=== PATIENT | female | born 1940 | race Caucasian/White ===

== ENCOUNTER 2023-08-03 09:26 | Emergency (ER) | payer BC, SELFPAY ==
[2023-08-03 09:37] VITALS: BP 141/65; BP 141/68; BMI 33.5
[2023-08-03 09:54] LABS: % Basophils 0.5 % (0-2); % Eosinophils 1.4 % (0-6); % Immature Granulocytes 0.3 % (0-0.5); % Lymphocytes 26.8 % (20.5-51.1); % Monocytes 8.6 % (1.7-9.3); % Neutrophils 62.4 % (42.2-75.2); Absolute Eosinophils 0.1 10^3/uL (0-0.7); Absolute Lymphocytes 2.1 10^3/uL (1.2-3.4); Absolute Monocytes 0.7 10^3/uL (0.1-0.6); Absolute Neutrophils 4.8 10^3/uL (1.4-6.5); Hematocrit 37.3 % (37.0-47.0); Hemoglobin 12.6 g/dL (12.0-16.0); Mean Corp Hgb Conc. 33.8 g/dL (33.0-37.0); Mean Corpuscular Hgb 30.7 pg (27.0-31.0); Mean Platelet Volume 10.5 fL (7.4-10.4); Nucleated Red Blood Cells % 0 %; Platelet Count 219 10^3/uL (130-400); Red Cell Dist. Width 12.9 % (11.5-14.5); White Blood Cell Count 7.7 10^3/uL (4.8-10.8)
--- NOTE | 2023-08-03 10:01 | ED.GENMED ---
History of Present Illness
General
Chief Complaint: Dizziness
Source: patient and ambulance crew
Exam Limitations: none
Time Seen by Provider: 08/03/23 09:54
Nursing documentation reviewed up to this point in time: agreed with
Travel History
Have you had any contact with someone who has COVID-19?: No
Do you have any symptoms of coronavirus? Fever > 100 degrees, chills, cough, shortness of breath, sore throat, loss of taste or smell, muscle aches, or headache?: No
History of Present Illness
History of Present Illness:
82-year-old female presents emergency room complaining of dizziness since 3 AM. Her gave her a glucose tab, and EMS gave her Zofran and IV Versed. She states she feels better.
Past History
Past History
ED Past Medical History: HTN, Hypercholesterolemia and NIDDM
ED Past Surgical History: Cholecystectomy
Social History
Tobacco: Non-smoker
Alcohol: None
Drug: None
Personal:
Living: with family
Review of Systems
Review of Systems
Allergies reviewed?: Yes
All Other Systems: Not applicable
Constitutional: Reports no symptoms
EENT: Reports no symptoms
Respiratory: Reports no symptoms
Cardiac: Reports no symptoms
ABD/GI: Reports nausea
: Reports no symptoms
Musculoskeletal: Reports no symptoms
Skin: Reports no symptoms
Neurological: Reports dizzy
Endocrine: Reports no symptoms
Hematologic/Lymphatic: Reports no symptoms
Psychiatric: Reports no symptoms
Phy Exam
Physical Exam
Physical Exam:
Physical Exam
General: no apparent distress, not acutely ill
Neck: supple. no meningeal signs. normal posterior pharynx
Heart: s1/s2 regular rate and rhythm, no murmur. equal radial
pulses.
HEENT: Pupils equal round reactive to light, EOMI, rightward nystagmus
Lungs: no acute respiratory distress. clear bilaterally
Abdomen: normal bowel sounds. not tender. no CVAT
Neuro: alert and oriented. no focal neurological deficits cranial nerves II through XII intact
Skin: no rash
Psychiatric: well kept. interactive and cooperative
Extremities: no edema. no calf tenderness. negative homans. good distal pulses
Course
Orders/Labs/Results
Orders:
Orders
08/03/23 09:45
EKG [Electrocardiogram (*1)] Urgent
Reason for Study: Vertigo / Dizzy
EKG- Treatment ONCE
08/03/23 09:46
Complete Blood Count/With Diff Urgent
Comprehensive Metabolic Panel Urgent
08/03/23 10:02
CT Head W/o Iv Contrast Urgent
Comment:
Reason For Exam: dizziness, 3 am
Physical Therapy Consult [Pt Eval And Treat] Urgent
Treatment: vestibular evaluation
Activity Level: Ambulate
Abnormal Lab Results
08/03/23
09:46
RBC 4.10 L 10^6/uL
(4.20-5.40)
MPV 10.5 H fL
(7.4-10.4)
Absolute Monos (auto) 0.7 H 10^3/uL
(0.1-0.6)
BUN 23 H mg/dl
(7-17)
Glucose 200 H mg/dl
(70-99)
Calcium 10.6 H mg/dl
(8.4-10.2)
08/03/23 09:46
08/03/23 09:46
Vital Signs
Initial and Last Documented VS:
Initial Vital Signs
Pulse Resp Pulse Ox
100 18 96
08/03/23 09:35 08/03/23 09:35 08/03/23 09:35
Last Documented Vital Signs
Temp Pulse Resp BP Pulse Ox
97.7 F 105 14 136/82 95
08/03/23 09:37 08/03/23 11:30 08/03/23 11:30 08/03/23 11:00 08/03/23 11:15
MDM/Problems Addressed
Differential Diagnosis Includes:
CVA, vertigo
MDM/Problems Addressed:
82-year-old female with vertigo, suspect BPPV. Marcus-Hallpike and further maneuvers proving positive. No acute findings on CT head. Stable for discharge.
Chronic conditions affecting care: DM and HTN
Acute Exacerbation and/or Progression of Chronic Illness: DM and HTN
*Radiology
Radiology exam reviewed: radiology read reviewed (ct head nad)
*Pulse Oximetry
Patient hypoxic: no
*EKG
Interpreted by ED Provider?: Yes
EKG Intrepretation Date: 08/03/23
EKG Intrepretation Time: 09:54
Interpretation: abnormal
Comparison EKG: no comparison EKG present
Heart Rate: 93
Rate: normal
Rhythm: sinus
Tyler: normal axis
Interval: normal interval
QRS Pattern: normal QRS
Ischemia: no ischemia
*Esthetician Facialist Interpretation
Rate: normal
Interpretation: normal
Heart Rate: 92
Rhythm: sinus
*Critical Care Note
Total Time (30-74mins, 75-104mins- exclusive of procedures): Not Applicable
Patient Management
Social determinants of health affecting care: Living situation and Strong social support
Discussion with other providers: Other (physical therapy)
Escalation/DeEscalation of care consider admission/obs:
admit not indicated
ED Attending Note
-
Portions of this chart may have been created with voice recognition software.� Occasional wrong word or��sound alike� substitutions may have occurred due to the inherent limitations of voice recognition software.
Discharge Plan
Departure
Patient Disposition: Home (Routine Discharge)
Date of Disposition: 08/03/23
Time of Disposition: 12:05
Patient with high blood pressure during this ER visit?: Yes
Condition: Good
Discharge Problem:
Vertigo
Instructions: Vertigo (a Type of Dizziness) (DC), BLOOD PRESSURE
Prescriptions:
New
meclizine 25 mg tablet
25 mg PO TID PRN (Reason: dizziness) Qty: 10 0RF
No Action
metformin 500 MG tablet
500 mg PO DAILY
pravastatin 10 MG tablet
10 mg PO DAILY
gabapentin 300 MG capsule
300 mg PO DAILY
potassium bicarb-citric acid 25 MEQ tablet, effervescent
50 meq PO DAILY
Referrals:
Vivian Quinteros PA-C [Family Provider] - Call in 1-3 days for appt
Interventions
Interventions:
*Risk Screen - Suicide Last Done: 08/03/23 09:37
*General Assessment Last Done: 08/03/23 09:37
*Neglect/Abuse Screening Last Done: 08/03/23 09:37
ED- Fall Risk Assessment Last Done: 08/03/23 09:37
*ED COVID-19 Vaccine History Last Done: 08/03/23 09:37
ED- Neurological Assessment Last Done: 08/03/23 09:37
ED- Cardiac Assessment Last Done: 08/03/23 09:37
ED Swallowing Screen Last Done: 08/03/23 09:37
Discharge Date and Time
Print Language: KINYARWANDA
[2023-08-03 10:04] LABS: ALT (SGPT) 29 U/L (0-35); AST (SGOT) 28 U/L (14-36); Albumin 3.7 g/dl (3.5-5.0); Alkaline Phosphatase 102 U/L (38-126); Blood Urea Nitrogen 23 mg/dl (7-17); Calcium 10.6 mg/dl (8.4-10.2); Carbon Dioxide 23 mmol/L (22-30); Chloride 107 mmol/L (98-107); Estimated Creatinine Clearance 44 ml/min; Glucose 200 mg/dl (70-99); Potassium 4.1 mmol/L (3.5-5.1); Sodium 136 mmol/L (135-145); Total Bilirubin 0.9 mg/dl (0.2-1.3); Total Protein 6.9 g/dl (6.3-8.2)
[2023-08-03 10:30] VITALS: BP 114/73
[2023-08-03 11:00] VITALS: BP 136/82
== END 2023-08-03 12:24 | disposition home or self-care (01) ==
LOC: EMR 09:26
PROVIDERS: EMERGENCY PHYSICIAN Emergency Medicine; FAMILY PHYSICIAN Physician Assistant Medical
DX: R42 Dizziness and giddiness (principal); I10 Essential (primary) hypertension; E78.00 Pure hypercholesterolemia, unspecified; E11.9 Type 2 diabetes mellitus without complications; Z90.49 Acquired absence of other specified parts of digestive tract
CPT/HCPCS: 99284; 70450; 80053; 85025; 93005

== ENCOUNTER 2024-10-28 14:28 | Emergency (ER) | payer BC, SELFPAY ==
[2024-10-28 14:53] VITALS: BP 172/86
[2024-10-28 15:05] LABS: % Basophils 0.3 % (0-2); % Eosinophils 0.2 % (0-6); % Immature Granulocytes 0.3 % (0-0.5); % Lymphocytes 16.7 % (20.5-51.1); % Monocytes 6.8 % (1.7-9.3); % Neutrophils 75.7 % (42.2-75.2); Absolute Lymphocytes 1.7 10^3/uL (1.2-3.4); Absolute Monocytes 0.7 10^3/uL (0.1-0.6); Absolute Neutrophils 7.8 10^3/uL (1.4-6.5); Hematocrit 39.8 % (37.0-47.0); Hemoglobin 13.3 g/dL (12.0-16.0); Mean Corp Hgb Conc. 33.4 g/dL (33.0-37.0); Mean Corpuscular Volume 89.8 fL (81.0-99.0); Mean Platelet Volume 10.8 fL (7.4-10.4); Nucleated Red Blood Cells % 0 %; Platelet Count 230 10^3/uL (130-400); Red Blood Cell Count 4.43 10^6/uL (4.20-5.40); Red Cell Dist. Width 13.2 % (11.5-14.5); White Blood Cell Count 10.3 10^3/uL (4.8-10.8)
[2024-10-28 15:34] LABS: Blood Urea Nitrogen 21 mg/dl (7-17); Calcium 10.4 mg/dl (8.4-10.2); Carbon Dioxide 23 mmol/L (22-30); Chloride 108 mmol/L (98-107); Glucose 206 mg/dl (70-99); Sodium 140 mmol/L (135-145); eGFR > 60.00
[2024-10-28 15:38] LABS: Troponin I < 0.012 ng/ml
[2024-10-28 17:55] VITALS: BMI 35.0
[2024-10-28 18:00] VITALS: BP 167/72
[2024-10-28 18:02] VITALS: BP 167/72
--- NOTE | 2024-10-28 18:02 | ED.GENMED ---
History of Present Illness
General
Chief Complaint: Swallowing Problem
Source: patient and family
Time Seen by Provider: 10/28/24 17:48
History of Present Illness
History of Present Illness:
Patient presents after having an episode where she felt inability to swallow and burning in his esophagus. The patient was taking her medication when this happened. For a time she was regurgitating yellowish saliva. After couple hours her
symptoms have suddenly resolved. She does have some pain with swallowing but she is now able to swallow her secretions. Patient had episodes where food seems like it is getting stuck temporarily but will pass on its own. She has not had any
endoscopies before.
Past History
Past History
ED Past Medical History: HTN, Hypercholesterolemia and NIDDM
ED Past Surgical History: Cholecystectomy
Social History
Tobacco: Non-smoker
Alcohol: None
Drug: None
Personal:
Living: with family
Phy Exam
Physical Exam
Physical Exam:
General: Awake, Alert, Oriented X3. No acute distress.
Vitals: unremarkable
Head: Atraumatic
Eyes: Pupils equal, EOMI
Throat: Airway intact, no exudates
Neck: Trachea midline
Lungs: Clear and equal b/l
Heart: Regular rate, no murmurs
Abd: Soft, Nontender, No pulsatile mass
Neuro: Nonfocal
Skin: Warm, dry, no rash
Extremities: pulses equal b/l, no edema
Course
Orders/Labs/Results
Orders:
Orders
10/28/24 14:54
Electrocardiogram (*1) Urgent
Reason for Study: Chest Pain
EKG- Treatment ONCE
10/28/24 14:59
Basic Metabolic Panel Urgent
Comment: [facility]
Complete Blood Count/With Diff Urgent
Troponin I Urgent
Abnormal Lab Results
10/28/24
14:59
MPV 10.8 H fL
(7.4-10.4)
Absolute Neuts (auto) 7.8 H 10^3/uL
(1.4-6.5)
Absolute Monos (auto) 0.7 H 10^3/uL
(0.1-0.6)
Neutrophils % 75.7 H %
(42.2-75.2)
Lymphocytes % 16.7 L %
(20.5-51.1)
Chloride 108 H mmol/L
(98-107)
BUN 21 H mg/dl
(7-17)
Glucose 206 H mg/dl
(70-99)
Calcium 10.4 H mg/dl
(8.4-10.2)
10/28/24 14:59
10/28/24 14:59
Vital Signs
Initial and Last Documented VS:
Initial Vital Signs
Temp Pulse Resp BP Pulse Ox
98.6 F 79 18 172/86 98
10/28/24 14:53 10/28/24 14:53 10/28/24 14:53 10/28/24 14:53 10/28/24 14:53
Last Documented Vital Signs
Temp Pulse Resp BP Pulse Ox
98.6 F 75 17 163/88 96
10/28/24 14:53 10/28/24 19:49 10/28/24 19:49 10/28/24 20:12 10/28/24 19:49
MDM/Problems Addressed
Differential Diagnosis Includes:
GERD, esophageal obstruction, pill esophagitis, angina
MDM/Problems Addressed:
Currently patient's symptoms have essentially resolved. She is swallowing normally. She was able to drink a cup of water without difficulty. She was observed for a period of time without any recurrence of symptoms. Labs are reassuring. Patient
stable for discharge home. Strongly recommend she about with GI for possible endoscopy.
*Pulse Oximetry
SaO2: 98
Oxygen Mode of Delivery: Room air
Patient hypoxic: no
*EKG
Interpreted by ED Provider?: Yes
Interpretation: normal
Heart Rate: 88
Rate: normal
Rhythm: sinus
QRS Pattern: poor R-wave progression
Ischemia: no ischemia
*Applications Support Specialist Interpretation
Rate: normal
Interpretation: normal
Rhythm: sinus
*Critical Care Note
Total Time (30-74mins, 75-104mins- exclusive of procedures): Not Applicable
ED Attending Note
-
Portions of this chart may have been created with voice recognition software.� Occasional wrong word or��sound alike� substitutions may have occurred due to the inherent limitations of voice recognition software.
Discharge Plan
Departure
Patient Disposition: Home (Routine Discharge)
Date of Disposition: 10/28/24
Time of Disposition: 19:51
Patient with high blood pressure during this ER visit?: Yes
Condition: Good
Discharge Problem:
Pill esophagitis
Instructions: Esophagitis, BLOOD PRESSURE
Prescriptions:
No Action
metformin 500 MG tablet
500 mg PO DAILY
pravastatin 10 MG tablet
10 mg PO DAILY
gabapentin 300 MG capsule
300 mg PO DAILY
potassium bicarb-citric acid 25 MEQ tablet, effervescent
50 meq PO DAILY
meclizine 25 mg tablet
25 mg PO TID PRN (Reason: dizziness) Qty: 10 0RF
Referrals:
Brenna Ruelas MD [Active, Gastroenterology]
Interventions
Interventions:
*Risk Screen - Suicide Last Done: 10/28/24 20:15
*General Assessment Last Done: 10/28/24 17:55
*Neglect/Abuse Screening Last Done: 10/28/24 20:15
*ED- Fall Risk Assessment Last Done: 10/28/24 17:55
*ED COVID-19 Vaccine History Last Done: 10/28/24 17:55
*Nursing Disposition Last Done: 10/28/24 17:15
ED- Pulmonary Assessment Last Done: 10/28/24 17:55
ED- Neurological Assessment Last Done: 10/28/24 17:55
ED-EENT Assessment Last Done: 10/28/24 17:55
[id number] Assessment Last Done: 10/28/24 17:55
ED Swallowing Screen Last Done: 10/28/24 18:08
Discharge Date and Time
Discharge Date/Time: 10/28/24 20:15
Print Language: BENGALI
[2024-10-28 19:33] VITALS: BP 156/65
[2024-10-28 20:12] VITALS: BP 163/88
== END 2024-10-28 20:15 | disposition home or self-care (01) ==
LOC: EMR 14:28
PROVIDERS: Emergency Medicine; EMERGENCY PHYSICIAN Emergency Medicine; FAMILY PHYSICIAN Physician Assistant Medical
DX: K20.80 Other esophagitis without bleeding (principal); I10 Essential (primary) hypertension; E11.9 Type 2 diabetes mellitus without complications; E78.00 Pure hypercholesterolemia, unspecified; Z90.49 Acquired absence of other specified parts of digestive tract
CPT/HCPCS: 99283; 80048; 84484; 85025; 93005